=== PATIENT | female | born 1955 | race African-American/Black ===

== ENCOUNTER 2021-01-22 11:41 | Inpatient (IN) ==
[2021-01-22] MEDS ORDERED: MEROPENEM 2,000 MG in SODIUM CHLORIDE 0.9% 100 ML IV ONE (12:41)
[2021-01-22] MEDS ORDERED: DEXTROSE 50% 25 GM/50 ML VIAL IV PRN (14:27)
[2021-01-22] MEDS ORDERED: ACETAMINOPHEN 325 MG TABLET PER TUBE PRN (14:27)
[2021-01-22] MEDS ORDERED: GLUCAGON 1 MG VIAL IM PRN (14:27)
[2021-01-22] MEDS ORDERED: ONDANSETRON 4 MG/2 ML VIAL IV PRN (14:27)
[2021-01-22 14:48] LABS: Alanine Aminotransferase 17 U/L (13-56); Albumin 3.1 G/DL (3.4-5.0); Alkaline Phosphatase 97 U/L (45-117); Aspartate Amino Transferase 22 U/L (0-37); Bilirubin,Total < 0.39 MG/DL (0.20-1.00); Blood Urea Nitrogen 17 MG/DL (7-18); Calcium 10.4 MG/DL (8.5-10.1); Carbon Dioxide 30 MMOL/L (21-32); Estimated Glom Filtration Rate 115 ML/MIN; Glucose 51 MG/DL (74-106); Osmolality,Calculated 271.8 MOS/KG (273-304); Potassium 4.5 MMOL/L (3.5-5.1); Sodium 137 MMOL/L (136-145); Total Protein 8.2 G/DL (6.4-8.2)
[2021-01-22] MEDS ORDERED: ENOXAPARIN 40 MG/0.4 ML SYRINGE SUBCUT SCH (15:00)
[2021-01-22 15:12] LABS: PT Patient Result 11.7 SECS (10.5-12.0); Partial Thromboplastin Time 27.7 SECS (23.8-32.1)
[2021-01-22 16:34] LABS: Basophils # 0.1 10*3/uL (0.0-0.2); Basophils % 0.7 % (0.0-0.8); Eosinophils # 0.2 10*3/uL (0.0-0.87); Eosinophils % 1.6 % (0.00-10.9); Hematocrit 36.3 VOL% (35.7-47.0); Hemoglobin 10.9 GM/DL (12.0-16.0); Immature Granulocytes % 0.3 %; Immature Granulocytes Absolute 0.03 #; Lymphocytes # 3.2 10*3/uL (1.4-4.0); Lymphocytes % 31.5 % (21.3-54.2); Mean Corpuscular Volume 85.6 FL (87-102); Mean Platelet Volume 12.9 FL (9.6-12.0); Monocytes % 8.4 % (1.7-12.7); Neutrophils % 57.5 % (38.7-73.9); Platelet Count 381 T/CUMM (130-400); Red Blood Count 4.24 MC/CUMM (3.8-5.5); Red Cell Distribution Width 17.2 % (9.3-17.3); White Blood Count 10.2 T/CUMM (4-12)
[2021-01-22] MEDS: LEVOFLOXACIN INJ 750 MG/150 ML PREMIX IV SCH (17:13)
[2021-01-22] MEDS: DEXTROSE 5% NACL 0.45% 1,000 ML IV SCH (17:14)
[2021-01-22] MEDS ORDERED: INSULIN LISPRO 100 UNIT/ML SUBCUT SCH (18:00)
[2021-01-22] MEDS: VANCOMYCIN INJ 1,250 MG in SODIUM CHLORIDE 0.9% 250 ML IV SCH (21:00)
[2021-01-23] MEDS: INSULIN LISPRO 100 UNIT/ML SUBCUT SCH ×4 (01:03→17:52)
[2021-01-23 05:51] LABS: Basophils % 0.3 % (0.0-0.8); Eosinophils # 0.1 10*3/uL (0.0-0.87); Eosinophils % 0.9 % (0.00-10.9); Hematocrit 33.1 VOL% (35.7-47.0); Hemoglobin 10.2 GM/DL (12.0-16.0); Immature Granulocytes % 0.3 %; Immature Granulocytes Absolute 0.02 #; Lymphocytes # 1.6 10*3/uL (1.4-4.0); Lymphocytes % 22.9 % (21.3-54.2); Mean Corpuscular HGB Conc 30.8 GM/DL (32-36); Mean Corpuscular Volume 85.1 FL (87-102); Mean Platelet Volume 11.9 FL (9.6-12.0); Monocytes % 10.1 % (1.7-12.7); Neutrophils % 65.5 % (38.7-73.9); Platelet Count 301 T/CUMM (130-400); Red Blood Count 3.89 MC/CUMM (3.8-5.5); Red Cell Distribution Width 16.9 % (9.3-17.3); White Blood Count 6.9 T/CUMM (4-12)
[2021-01-23 06:14] LABS: Calcium 9.5 MG/DL (8.5-10.1); Osmolality,Calculated 276.7 MOS/KG (273-304); Potassium 3.5 MMOL/L (3.5-5.1); Risk Ratio 3.55; VLDL Cholesterol 17.4 MG/DL
[2021-01-23] MEDS: DEXTROSE 5% NACL 0.45% 1,000 ML IV SCH (06:34)
[2021-01-23] MEDS: VANCOMYCIN INJ 1,250 MG in SODIUM CHLORIDE 0.9% 250 ML IV SCH ×2 (09:52→21:30)
[2021-01-23] MEDS ORDERED: LIDOCAINE 2% 5 ML VIAL ONE (11:43)
[2021-01-23] MEDS ORDERED: propofoL 200 MG/20 ML VIAL IV ONE (11:44)
[2021-01-23] MEDS ORDERED: SODIUM CHLORIDE 0.9% 100 ML IV ONE (11:44)
[2021-01-23] MEDS ORDERED: fentaNYL 100 MCG/2 ML VIAL ONE (11:45)
[2021-01-23] MEDS ORDERED: LACTATED RINGERS 1,000 ML IV SCH (12:00)
[2021-01-23] MEDS ORDERED: LIDOCAINE 1% 50 ML VIAL ONE (12:32)
[2021-01-23] MEDS: BACLOFEN 10 MG TABLET PEG SCH ×2 (15:43→21:30)
[2021-01-23] MEDS: LEVOFLOXACIN INJ 750 MG/150 ML PREMIX IV SCH (15:43)
[2021-01-23] MEDS: GABAPENTIN 50 MG/ML 30 ML/BOTTLE PEG SCH ×2 (15:44→21:30)
[2021-01-23] MEDS: CARBIDOPA/LEVODOPA 25-250 MG TABLET PEG SCH ×2 (15:44→21:30)
[2021-01-23] MEDS: METOPROLOL TARTRATE 50 MG TABLET PEG SCH (21:30)
[2021-01-23] MEDS: LORazepam 0.5 MG TABLET PEG SCH (21:30)
[2021-01-23] MEDS: SENNA 8.6 MG TABLET PEG SCH (21:30)
[2021-01-24] MEDS: INSULIN LISPRO 100 UNIT/ML SUBCUT SCH ×4 (01:08→19:10)
[2021-01-24 07:25] LABS: Basophils % 0.5 % (0.0-0.8); Eosinophils # 0.1 10*3/uL (0.0-0.87); Eosinophils % 1.3 % (0.00-10.9); Hematocrit 36.3 VOL% (35.7-47.0); Hemoglobin 11.4 GM/DL (12.0-16.0); Immature Granulocytes % 0.1 %; Immature Granulocytes Absolute 0.01 #; Lymphocytes # 1.8 10*3/uL (1.4-4.0); Lymphocytes % 23.6 % (21.3-54.2); Mean Corpuscular HGB Conc 31.4 GM/DL (32-36); Mean Corpuscular Volume 85.6 FL (87-102); Neutrophils % 64.5 % (38.7-73.9); Platelet Count 332 T/CUMM (130-400); Red Blood Count 4.24 MC/CUMM (3.8-5.5); Red Cell Distribution Width 17.2 % (9.3-17.3); White Blood Count 7.6 T/CUMM (4-12)
[2021-01-24 07:51] LABS: Calcium 9.7 MG/DL (8.5-10.1); Osmolality,Calculated 282.4 MOS/KG (273-304); Potassium 3.9 MMOL/L (3.5-5.1)
[2021-01-24] MEDS ORDERED: amLODIPine 10 MG TABLET PEG SCH (09:00)
[2021-01-24] MEDS ORDERED: MULTIVITAMIN LIQUID (CENTRUM) 60 ML BOTTLE PEG SCH (09:00)
[2021-01-24] MEDS ORDERED: ATORVASTATIN 10 MG TABLET PEG SCH (09:00)
[2021-01-24] MEDS ORDERED: SERTRALINE 50 MG TABLET PEG SCH (09:00)
[2021-01-24] MEDS ORDERED: hydroCHLOROthiazide 25 MG TABLET PEG SCH (09:00)
[2021-01-24] MEDS ORDERED: LOSARTAN 50 MG TABLET PEG SCH (09:00)
[2021-01-24] MEDS: CARBIDOPA/LEVODOPA 25-250 MG TABLET PEG SCH ×3 (09:34→21:54)
[2021-01-24] MEDS: METOPROLOL TARTRATE 50 MG TABLET PEG SCH ×2 (09:35→21:55)
[2021-01-24] MEDS: BACLOFEN 10 MG TABLET PEG SCH ×3 (09:35→21:55)
[2021-01-24] MEDS: GABAPENTIN 50 MG/ML 30 ML/BOTTLE PEG SCH ×3 (09:36→21:55)
[2021-01-24] MEDS: VANCOMYCIN INJ 1,250 MG in SODIUM CHLORIDE 0.9% 250 ML IV SCH ×2 (09:36→21:56)
[2021-01-24] MEDS: LEVOFLOXACIN INJ 750 MG/150 ML PREMIX IV SCH (18:45)
[2021-01-24] MEDS: DEXTROSE 5% NACL 0.45% 1,000 ML IV SCH ×2 (19:09→21:56)
[2021-01-24] MEDS: SENNA 8.6 MG TABLET PEG SCH (21:54)
[2021-01-24] MEDS: LORazepam 0.5 MG TABLET PEG SCH (21:55)
[2021-01-25] MEDS: INSULIN LISPRO 100 UNIT/ML SUBCUT SCH (00:42)
[2021-01-25 01:08] VITALS: BP 114/58
== END 2021-01-25 00:49 | disposition home or self-care (01) | DRG 256 ==
LOC: EDUNIT# → EDBD → N.ED 11:41 → SUATTDRO 14:27 → N.EDINP 14:27 → N.3E 17:07
PROVIDERS: ADMIT Internal Medicine; ATTEND Internal Medicine